=== PATIENT | female | born 1945 | race Hispanic/Latino ===

== ENCOUNTER 2017-03-23 08:58 | Day surgery (SDC) | payer MEDICARE, BC ==
[2017-03-18 10:21] VITALS: BMI 41.6
[2017-03-23] MEDS ORDERED: Iohexol 240 (50 ml) ONE (10:56)
[2017-03-23] MEDS ORDERED: Midazolam 2 MG/2 ML VIAL ONE (11:28)
[2017-03-23] MEDS ORDERED: Propofol 10 mg/ml Inj (20 ML) ONE (11:28)
[2017-03-23] MEDS ORDERED: cefTRIAXone (Rocephin) 1 gm Inj ONE (11:36)
[2017-03-23] MEDS ORDERED: ePHEDrine 50 mg/ml Inj ONE (11:47)
[2017-03-23] MEDS ORDERED: Lactated Ringer's 1,000 ML IV SCH (13:02)
[2017-03-23] MEDS ORDERED: HYDROmorphone 0.5 mg/0.5 ml ISec IVP PRN (13:02)
[2017-03-23 13:38] VITALS: RESP 18
[2017-03-23 14:01] VITALS: TEMP 97.7
[2017-03-23 14:05] VITALS: BP 123/61; PULSE 67; O2SAT 94
--- NOTE | 2017-03-23 14:10 | RAD ---
PROCEDURE: Fluoroscopy up to 1 hour HISTORY: BILATERAL RETROGRADES / STENT INSERTION (RIGHT) COMPARISON: TECHNIQUE: Fluoroscopy was provided in the operating room. 198 seconds of fluoro time were used. Sixteen images were submitted FINDINGS: The left ureter and renal collecting system are unremarkable. 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 On the right side there is hydronephrosis and hydroureter. There is placement of a right ureteral stent. Surgical hardware in the spine overlies the ureter and portions of the collecting system IMPRESSION: As above
--- NOTE | 2017-03-23 22:07 | OP ---
PROCEDURE DATE: 03/23/2017 PREOPERATIVE DIAGNOSIS: Hematuria. POSTOPERATIVE DIAGNOSIS: Right ureteral tumor. SURGEON: Dr. Watson. TYPE OF ANESTHESIA: LMA. DESCRIPTION OF PROCEDURE: After adequate LMA anesthesia was given, the patient was placed lithotomy, prepped and draped in the usual manner. A 22-Tajik cystourethroscope was introduced. 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 No other visible tumor on the bladder. No foreign bodies or stones. I attempted to do a retrograde with a cone-tipped catheter, but no dye would go up. Again, with an open-ended catheter and use of a Glidewire, was able to navigate a Glidewire up in to the kidney and then passed an open-ended catheter over the Glidewire, removing the Glidewire. Contrast was then injected. Prior to contrasting being injected, urine was obtained from the right side for cytology. After this was done, I did a contrast injection through the open-ended catheter, there was a hydronephrosis and there appeared to be filling defects in the lower third of the ureter. At this point, I placed the sensor wire through the open-ended catheter and removed the open-ended catheter. I then took a semi-rigid ureteroscope under direct vision, could advance approximately quarter the way up the right ureter and I could not see clearly due to the tumor. Tumor specimen was biopsied with forceps. The ureteroscope was then removed around the orifice of the right ureter, I fulgurated some oozing. Over the sensor wire, then placed a 24 cm 6-Tajik pigtail stent, which coiled nicely in the renal pelvis and the bladder when the wire was removed. 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 The bladder was drained. There was no evidence of any bleeding. The cystoscope was removed. The patient was awake and brought to the recovery room in good condition. Saturnino Watson MD
== END 2017-03-23 14:45 | disposition home or self-care (01) ==
LOC: SDS 08:58
PROVIDERS: ATTEND Urology
DX: C66.1 Malignant neoplasm of right ureter (principal); R31.9 Hematuria, unspecified; N13.30 Unspecified hydronephrosis; I10 Essential (primary) hypertension; E11.9 Type 2 diabetes mellitus without complications; Z79.84 Long term (current) use of oral hypoglycemic drugs
CPT/HCPCS: 52354; 88108; 88305; C1758; C2625; J0696; J1170; J2250; J2405; J2704; J3010; J7120 ×2; Q9966

== ENCOUNTER 2017-06-18 14:22 | Emergency (ER) | payer MEDICARE, BC ==
[2017-06-18 14:35] VITALS: BMI 39.8
[2017-06-18 14:39] VITALS: PULSE 92; RESP 18
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
[2017-06-18] MEDS ORDERED: Sodium Chloride 0.9% 1,000 ML IV STA (14:42)
[2017-06-18 15:11] LABS: BASO # 0.04 K/mm3 (0.0-2.0); BASO % 0.2 % (0.0-3.0); GRAN # 14.23 (1.4-6.5); GRAN % 84.7 % (50.0-68.0); HEMATOCRIT 33.7 % (36.0-48.0); LYMPH # 1.2 (1.2-3.4); LYMPH % 7.2 % (22.0-35.0); MEAN CELL VOLUME 88.9 fl (80.0-105.0); MEAN CORPUSCULAR HGB CONC 32.6 g/dl (31.0-37.0); MEAN PLATELET VOLUME 9.3 fl (7.0-11.0); MONO # 1.3 (0.1-0.6); MONO % 7.9 % (1.0-6.0); RED CELL DISTRIBUTION WIDTH 13.8 % (11.5-14.5); WHITE BLOOD COUNT 16.8 10^3/ul (4.5-11.0)
[2017-06-18 15:17] LABS: ALB/GLOB RATIO 1.2 (1.1-1.8); ALKALINE PHOSPHATASE 69 U/L (38-126); ALT/SGPT 29 U/L (7-56); AST/SGOT 26 U/L (14-36); BLOOD UREA NITROGEN 37 mg/dL (7-21); CALCIUM 9.6 mg/dL (8.4-10.5); CARBON DIOXIDE 24 mmol/L (21-33); CHLORIDE 96 mmol/L (98-107); GFR AFRICAN-AMERICAN 38; POTASSIUM 4.3 mmol/L (3.6-5.0); SODIUM 132 mmol/L (132-148); TOTAL PROTEIN 6.9 g/dL (5.8-8.3)
[2017-06-18 15:23] LABS: TROPONIN I < 0.01 ng/mL
[2017-06-18 15:26] LABS: VENOUS BLOOD PH 7.34 (7.32-7.43)
[2017-06-18 16:02] LABS: GLUCOSE,RANDOM 343 mg/dL (70-110)
--- NOTE | 2017-06-18 16:21 | RAD ---
HISTORY: cough COMPARISON: Chest x-ray performed 11/23/16 TECHNIQUE: Chest, one view. FINDINGS: Examination limited by habitus. LUNGS: No focal consolidation. Please note that chest x-ray has limited sensitivity for the detection of pulmonary masses. PLEURA: No significant pleural effusion identified. No definite pneumothorax . CARDIOVASCULAR: Heart size appears top normal. OSSEOUS STRUCTURES: Degenerative changes of the spine. VISUALIZED UPPER ABDOMEN: Unremarkable. OTHER FINDINGS: None. IMPRESSION: No focal consolidation, significant pleural effusion, or definite pneumothorax identified.
[2017-06-18 16:24] LABS: URINE BILIRUBIN NEGATIVE (NEGATIVE); URINE BLOOD LARGE (NEGATIVE); URINE GLUCOSE (UA) 100 mg/dL (NEGATIVE); URINE KETONE NEGATIVE (NEGATIVE); URINE LEUKOCYTE ESTERASE MODERATE Leu/uL (NEGATIVE); URINE PROTEIN 30 mg/dL (<30 mg/dL); URINE UROBILINOGEN 0.2 E.U./dL (<1 E.U./dL)
[2017-06-18 16:27] LABS: URINE APPEARANCE CLEAR (CLEAR); URINE COLOR YELLOW (YELLOW)
[2017-06-18 16:55] LABS: URINE AMORPHOUS SEDIMENT FEW; URINE BACTERIA MANY (NEG); URINE RBC TNTC /hpf (0-2); URINE WBC 25 - 30 /hpf (0-6)
[2017-06-18] MEDS ORDERED: levoFLOXacin 500 MG TAB PO STA (17:04)
[2017-06-18 17:22] VITALS: BP 124/62; TEMP 99; O2SAT 96
--- NOTE | 2017-06-20 10:57 | ED PDOC ---
ED Additional Note - Date & Time of Evaluation Date of Evaluation: 06/20/17 Time of Evaluation: 10:56 - Physician Additional Note Physician Additional Note: I received the urine culture result from RN Paula Frazier, show +Urine culture show klebsiella pneumoniae ssp, sensitive to fluoroquinlones which she discharge home with levaquin.
== END 2017-06-18 17:45 | disposition home or self-care (01) ==
LOC: ED 14:22
DX: N39.0 Urinary tract infection, site not specified (principal); E11.65 Type 2 diabetes mellitus with hyperglycemia; I10 Essential (primary) hypertension
CPT/HCPCS: 71010; 80053; 81001; 82803; 82948; 84484; 85025; 87086; 87181; 96360; 99284; J7040

== ENCOUNTER 2017-08-21 15:12 | Inpatient (IN) | payer MEDICARE, BC ==
[2017-08-21 15:13] VITALS: BMI 39.8
[2017-08-21] MEDS ORDERED: Cefepime IV 2 gm in NS 2 GM/100 ML BAG IVPB STA (15:51)
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
[2017-08-21 16:43] LABS: BASO # 0.05 K/mm3 (0.0-2.0); BASO % 0.7 % (0.0-3.0); EOS # 0.4 (0.0-0.7); EOS % 5.3 % (1.5-5.0); GRAN # 4.45 (1.4-6.5); GRAN % 59.2 % (50.0-68.0); HEMOGLOBIN 10.9 g/dL (12.0-16.0); LYMPH # 2.1 (1.2-3.4); LYMPH % 27.6 % (22.0-35.0); MEAN CELL VOLUME 86.9 fl (80.0-105.0); MEAN CORPUSCULAR HEMOGLOBIN 26.5 pg (25.0-35.0); MEAN CORPUSCULAR HGB CONC 30.5 g/dl (31.0-37.0); MEAN PLATELET VOLUME 9.4 fl (7.0-11.0); MONO # 0.5 (0.1-0.6); MONO % 7.2 % (1.0-6.0); RBC 4.11 10^6/uL (3.5-6.1); RED CELL DISTRIBUTION WIDTH 15.7 % (11.5-14.5); WHITE BLOOD COUNT 7.5 10^3/ul (4.5-11.0)
[2017-08-21 17:00] LABS: CALCIUM 10.2 mg/dL (8.4-10.5); URINE BILIRUBIN NEGATIVE (NEGATIVE); URINE BLOOD MODERATE (NEGATIVE); URINE GLUCOSE (UA) 500 mg/dL (NEGATIVE); URINE LEUKOCYTE ESTERASE LARGE Leu/uL (NEGATIVE); URINE NITRATE NEGATIVE (NEGATIVE); URINE PROTEIN 30 mg/dL (<30 mg/dL); URINE UROBILINOGEN 0.2 E.U./dL (<1 E.U./dL)
[2017-08-21] MEDS ORDERED: Sodium Chloride 0.9% 1,000 ML IV STA (17:01)
[2017-08-21] MEDS ORDERED: Sod Polystyrene Sulf 15 gm/60 ml Susp PO STA (17:01)
[2017-08-21 17:02] LABS: URINE APPEARANCE CLOUDY (CLEAR); URINE COLOR YELLOW (YELLOW)
[2017-08-21 17:54] LABS: URINE BACTERIA SMALL (NEG); URINE WBC TNTC /hpf (0-6)
[2017-08-21] MEDS: Insulin Reg-LOW-Coverage SC SCH (22:41)
--- NOTE | 2017-08-22 07:35 | HP ---
HISTORY OF PRESENT ILLNESS: Patient is a 72-year-old female patient of Dr. Bains, was referred to emergency room by urologist, Dr. Garcia, who did urine culture on 08/12/2017 and was found to have resistant Klebsiella UTI, only sensitive to IV antibiotics, so she was referred to emergency room for IV antibiotics. Patient does complain of increased frequency of urination and discomfort. Denies any fever or chills. No history of nausea or vomiting. No abdominal pain. No diarrhea. Patient does have a history of recurrent UTI. PAST MEDICAL HISTORY: Her significant past medical history is: 1. Hypertension. 2. Arq-qdwikon-joiodoplf diabetes. 3. Ureteral cancer. PAST SURGICAL HISTORY: She had a surgical excision on 06/07/2017, when she recently had a stent removed. ALLERGIES: SHE IS NOT ALLERGIC TO ANY MEDICATION. MEDICATIONS AT HOME: Patient is on metformin 1000 twice a day, glipizide mg before breakfast and 5 mg at bedtime. She is on Cymbalta 30 mg daily, aspirin 81 mg daily, multivitamin, Januvia 100 mg daily, Crestor 5 mg daily, losartan 100 mg daily, gabapentin 300 three times a day. SOCIAL HISTORY: Denies smoking, drinking, alcohol use. REVIEW OF SYSTEMS: Significant for urinary discomfort. PHYSICAL EXAMINATION: GENERAL: She is awake, alert, oriented, communicative. VITAL SIGNS: She is afebrile, pulse 82, respirations 20, blood pressure 138/69. LUNGS: Bilateral good airflow. No rhonchi or crackle. HEART: S1 and S2 audible. ABDOMEN: Soft, obese, nontender. No rebound. No guarding. NEUROLOGIC: She is awake, alert, oriented, able to communicate. LABORATORY DATA: WBC 7.5, hemoglobin 10.9, hematocrit 35.7, platelet 376. Chemistry: Sodium 145, potassium 5.3, chloride 106, CO2 26, BUN 28, creatinine 1.2, blood sugar of 204. Urinalysis shows moderately large leukocytes, WBCs too numerous to count. ASSESSMENT AND PLAN: 1. Recurrent urinary tract infection. Sensitivity done in urologist office shows Klebsiella. 2. Tlg-hctyzgz-uptajtayh diabetes. 3. Hypertension. 4. Hyperlipidemia. PLAN: Patient is sensitive to cefepime, we will continue that. She already has received one dose of cefepime in the ER. We will monitor her blood sugar. Blood cultures and urine culture have been sent, and we will follow up her electrolytes in the a.m. and ID consult with Dr. Hoffman has been requested. Khang Stewart MD
[2017-08-22] MEDS: Insulin Reg-LOW-Coverage SC SCH ×4 (07:48→22:11)
[2017-08-22 08:08] LABS: BASO # 0.05 K/mm3 (0.0-2.0); BASO % 0.6 % (0.0-3.0); EOS # 0.5 (0.0-0.7); EOS % 5.8 % (1.5-5.0); GRAN # 5.82 (1.4-6.5); GRAN % 65.1 % (50.0-68.0); LYMPH # 1.8 (1.2-3.4); LYMPH % 20.3 % (22.0-35.0); MEAN CELL VOLUME 85.9 fl (80.0-105.0); MEAN CORPUSCULAR HEMOGLOBIN 26.6 pg (25.0-35.0); MEAN PLATELET VOLUME 9.2 fl (7.0-11.0); MONO # 0.7 (0.1-0.6); MONO % 8.2 % (1.0-6.0); RBC 3.76 10^6/uL (3.5-6.1); RED CELL DISTRIBUTION WIDTH 15.5 % (11.5-14.5); WHITE BLOOD COUNT 8.9 10^3/ul (4.5-11.0)
[2017-08-22 08:37] LABS: ALB/GLOB RATIO 1.1 (1.1-1.8); ALBUMIN 3.4 g/dL (3.0-4.8); CALCIUM 9.7 mg/dL (8.4-10.5); MAGNESIUM 1.4 mg/dL (1.7-2.2)
[2017-08-22 08:41] LABS: FREE T4 0.74 ng/dL (0.78-2.19)
[2017-08-22] MEDS ORDERED: Cefepime 1gm in NS 100ml 1 GM/100 ML BAG IVPB SCH (10:00)
[2017-08-22] MEDS: Meropenem 1g/NS 100mL IVPB 1 GM/100 ML PIGGYBACK IVPB SCH ×3 (12:10→22:12)
--- NOTE | 2017-08-22 23:01 | CON ---
DATE: 08/22/2017 LOCATION: The patient is seen earlier today in 570, bed 1. CHIEF COMPLAINT: The patient's possible urinary tract infection times a few days. HISTORY OF PRESENT ILLNESS: This is a 72-year-old female with history of diabetes mellitus, hypertension, urethral cancer and renal stents removed 2-3 weeks ago. Presents to the emergency room with urinary symptoms of frequency and was seen by Dr. Garcia, urologist on 08/12/2017 and reported having resistant urinary tract infections, so he transferred the patient for resistant Klebsiella and IV antibiotic treatment. The patient states she does not have dysuria, but she did have frequency. She did have low-grade fevers. No chills. No abdominal pain. No flank pain. No back pain. No chest pain, shortness of breath or cough. PAST MEDICAL HISTORY: Significant for hypertension, diabetes and hyperlipidemia and ureteral cancer. PAST SURGICAL HISTORY: Significant for tubal ligation, right knee surgery, right foot surgery and a urology surgery including the removal of the renal stent 2-3 weeks ago. ALLERGIES: THE PATIENT HAS NO KNOWN ALLERGIES. MEDICATIONS AT HOME: Include metformin, glipizide, duloxetine, aspirin, rosuvastatin, multivitamins. PHYSICAL EXAMINATION: GENERAL: The patient is in bed, in no acute distress, answering questions appropriately with temperature of 99, heart rate of 82, respiratory rate of 20, blood pressure is 120/40. HEENT: Examination of HEENT is unremarkable. NECK: Supple. LUNGS: Have decreased breath sounds. HEART: Normal S1, S2. ABDOMEN: Soft, nontender. LABORATORY DATA: Laboratory examination reveals a white count of 8.9, hemoglobin of 10, platelets of 347, BUN of 28, creatinine is 1.2. Random glucose is elevated. Urinalysis is noted to have too numerous wbc's. Urine culture has gram-negative leyla. Urine culture from 06/2017 had ESBL Klebsiella. ASSESSMENT AND PLAN: A 72-year-old female with a history of ureteral cancer with surgery and stent placement, stent removed 2-3 weeks ago with history of hypertension, diabetes, hyperlipidemia. Had frequency, but no dysuria as outpatient and seen doctors as outpatient and was given antibiotics as outpatient and found to have resistant extended-spectrum beta-lactamase Klebsiella on last admission and resistant organism on this admission as outpatient. Now #1 is a gram-negative leyla urinary tract infection, found to be resistant as outpatient, most likely recurrence of extended-spectrum beta-lactamase Klebsiella. We will discontinue the cefepime and start meropenem. Pending the identification sensitivity of the gram-negative leyla in the urine and we will check on the blood cultures and we will make further recommendations upon availability of urine cultures. We will place the patient on extended-spectrum beta-lactamase precautions since the patient had a positive extended-spectrum beta-lactamase Klebsiella in June. Darci Hoffman MD
--- NOTE | 2017-08-23 00:27 | PN ---
DATE: SUBJECTIVE: Patient has no complaints of any chest pain, shortness of breath, headaches, or dizziness. PHYSICAL EXAMINATION: VITAL SIGNS: Temperature is 99.1, pulse is 71, blood pressure is 120/48, and respirations 18. GENERAL: The patient is lying in bed, flat, comfortable. HEENT: No oral lesion. Anicteric sclerae. Moist mucosa. NECK: No JVD, adenopathy, or thyromegaly. CARDIOVASCULAR: S1 and S2, regular. No murmurs, rubs, or gallops. LUNGS: Clear to auscultation bilaterally. No wheeze, rales, or rhonchi. ABDOMEN: Bowel sounds are positive, soft, nontender, and nondistended. EXTREMITIES: No cyanosis, clubbing, or edema. LABORATORY DATA: White count is 8.9 and hemoglobin is 10. Chemistry shows sodium 142, potassium 4.2, magnesium is 1.4, and creatinine is 1.3. ASSESSMENT: 1. Urinary tract infection. 2. Diabetes type 2. 3. Hypertension. 4. Dyslipidemia. 5. Hypomagnesemia. PLAN: The patient had urinary tract infection. She has gram-negative rods that are present in her urine. She is being followed by Dr. Hoffman. The patient is on Cymbalta. She is going to continue on aspirin daily. She is on Januvia for diabetes. She is on meropenem for antibiotics. We will await culture results and further input from Dr. Hoffman from Infectious Disease. Jacobo Ramirez MD
[2017-08-23] MEDS: Meropenem 1g/NS 100mL IVPB 1 GM/100 ML PIGGYBACK IVPB SCH ×2 (05:25→22:05)
[2017-08-23] MEDS: Insulin Reg-LOW-Coverage SC SCH ×4 (08:10→22:03)
--- NOTE | 2017-08-23 19:51 | CP.PCM.PN ---
Subjective - Date & Time of Evaluation Date of Evaluation: 08/23/17 Time of Evaluation: 10:50 - Subjective Subjective: Comfortable, no urinary symptoms currently, no fevers. Objective - Vital Signs/Intake and Output Vital Signs (last 24 hours): Temp Pulse Resp BP Pulse Ox 97.7 F 78 18 132/56 L 95 08/23/17 07:36 08/23/17 07:36 08/23/17 07:36 08/23/17 07:36 08/23/17 07:36 Intake and Output: 08/23/17 08/24/17 18:59 06:59 Intake Total 480 Balance 480 - Medications Medications: Current Medications Aspirin (Aspirin Chewable) 81 mg PO DAILY [facility] Last Admin: 08/23/17 10:04 Dose: 81 mg Duloxetine HCl (Cymbalta) 20 mg PO DAILY [facility] Last Admin: 08/23/17 10:05 Dose: 20 mg Folic Acid (Folic Acid) 1 mg PO DAILY [facility] Last Admin: 08/23/17 10:04 Dose: 1 mg Meropenem/Sodium Chloride (Meropenem 1g/Ns 100ml Ivpb) 1 gm in 100 mls @ 100 mls/hr IVPB Q12 JOCELYN PRN Reason: Protocol Stop: 09/01/17 11:16 Insulin Human Regular (Humulin R Low) 0 units SC ACHS [facility] PRN Reason: Protocol Last Admin: 08/23/17 16:20 Dose: 3 units Losartan Potassium (Cozaar) 100 mg PO DAILY [facility] Last Admin: 08/23/17 10:04 Dose: 100 mg Metformin HCl (Glucophage) 500 mg PO BID [facility] Sitagliptin Phosphate (Januvia) 100 mg PO DAILY [facility] - Labs Labs: 08/22/17 07:30 08/22/17 07:30 - Constitutional Appears: Non-toxic - Head Exam Head Exam: NORMAL INSPECTION - ENT Exam ENT Exam: Mucous Membranes Moist - Neck Exam Neck Exam: absent: Meningismus - Respiratory Exam Respiratory Exam: Decreased Breath Sounds - Cardiovascular Exam Cardiovascular Exam: +S1, +S2 - GI/Abdominal Exam GI & Abdominal Exam: Soft. absent: Tenderness Assessment and Plan - Assessment and Plan (Free Text) Plan: Assessment UTI due to ESBL Klebsiella HTN DM dyslpidemia uterine CA S/P right knee surgery S/P right foot surgery S/P renal stent placement Plan Continue Merrem day 2, should complete up to 10 days of antibiotics
[2017-08-23 20:00] VITALS: RESP 20
--- NOTE | 2017-08-24 00:58 | PN ---
DATE: SUBJECTIVE: Patient is 72 years old, who was admitted because of multidrug-resistant UTI, only sensitive to IV antibiotics. Patient had a surgery done recently. Had stent placed that was also removed a few weeks ago. Patient went for routine checkup by her urologist who did culture and was found to have Klebsiella UTI and referred to ER for IV antibiotics. PHYSICAL EXAMINATION: GENERAL: Today, she is awake, alert, oriented, communicative. VITAL SIGNS: She is afebrile, pulse 70, respirations 18, blood pressure 132/56. LUNGS: Bilateral good airflow. No rhonchi or crackle. HEART: S1 and S2 audible. ABDOMEN: Soft, nontender. No rebound. No guarding. NEUROLOGIC: She is awake, alert, oriented, communicative, ambulatory. LABORATORY DATA: Blood sugar is 263. Urine cultures are positive for Klebsiella pneumonia. Blood cultures are negative. ASSESSMENT: 1. Status post urethral mass resection. 2. Recurrent urinary tract infection. 3. Klebsiella urinary tract infection. 4. Non-insulin dependant diabetes. 5. Hypertension. 6. Hyperlipidemia. PLAN: I will increase her Januvia to 100. Also start her on metformin and monitor her blood sugar. TCU evaluation will be requested. If the patient is accepted in TCU, she will be transferred there to complete her course of antibiotics. Khang Stewart MD
[2017-08-24 08:13] VITALS: BP 118/49; PULSE 61; TEMP 98.6; O2SAT 98
[2017-08-24] MEDS: Insulin Reg-LOW-Coverage SC SCH ×2 (08:38→11:58)
[2017-08-24] MEDS: Meropenem 1g/NS 100mL IVPB 1 GM/100 ML PIGGYBACK IVPB SCH (09:59)
--- NOTE | 2017-08-25 00:20 | PN ---
DATE: 08/24/2017 SUBJECTIVE: The patient was seen earlier this morning in room 570, bed 1. She is doing well. No fevers and chills. No nausea and vomiting. Tolerating the antibiotics. PHYSICAL EXAMINATION: VITAL SIGNS: Temperature is 98, blood pressure is 118/40, respiratory rate of 20. HEENT: Examination of HEENT is unremarkable. NECK: Supple. LUNGS: Decreased breath sounds. HEART: Normal S1 and S2. ABDOMEN: Soft, nontender. LABORATORY DATA: Laboratory examination reveals a white count of 8.9, hemoglobin of 10, platelets of 347. Chemistries reveals BUN of 25, creatinine of 1.3. Urinalysis is noted. Microbiology reveals that Klebsiella which is ESBL in the urine. The blood cultures have no growth. ASSESSMENT AND PLAN: This is a 72-year-old female who was seen earlier this morning in room 570, bed 1 with Extended spectrum beta-lactamase Klebsiella urinary tract infection in a patient who has had renal stent placement and hypertensive diabetic, had cloudy urine and urinary symptoms. Today is day #3 of meropenem, would complete 7 to 10 days of meropenem. Case discussed with Dr. Stewart. We will follow with you. The patient for possible transfer to transitional care. Darci Hoffman MD
--- NOTE | 2017-08-25 07:00 | DS ---
HISTORY OF PRESENT ILLNESS: Patient is 72 years old, seen and examined, lying in bed. Seem to be comfortable. No nausea, no vomiting, no diarrhea. No fever, no chills. Patient was admitted because of positive urine culture. Patient recently had stent removed 3 to 4 weeks ago after she had urethral mass resection done. She is currently asymptomatic. PHYSICAL EXAMINATION: VITAL SIGNS: She is afebrile, pulse 61, respirations 20, blood pressure 118/49 LUNGS: Bilateral good airflow. No rhonchi or crackles. HEART: S1 and S2 audible. ABDOMEN: Soft, nontender. No rebound. No guarding. NEUROLOGICAL: Patient is awake, alert, oriented and communicative. LABORATORY DATA: Her urine culture was positive for Klebsiella pneumoniae. ASSESSMENT: 1. Multi-drug resistant urinary tract infection, only sensitive to intravenous antibiotics. 2. Non-insulin dependent diabetes. 3. Hypertension. 4. Hyperlipidemia. 5. History of bilateral cataract extraction. 6. Status post left thumb amputation. PLAN: Currently patient is on aspirin 81 daily, losartan. We will increase her metformin to 1000 q.12 that she takes at home. Patient need to complete her course of antibiotic for total of 7 days. She need 4 or 5 more days. She is being transferred to TCU, where she will complete her course of antibiotic. Khang Stewart MD
--- NOTE | 2017-08-25 08:12 | CON ---
DATE: 08/23/2017 UROLOGY CONSULTATION CHIEF COMPLAINT: Urinary tract infection. HISTORY OF PRESENT ILLNESS: This is a 72-year-old female who is known to my practice. Patient had a resection of a ureteral tumor with a reimplantation done by . During her followup exam, patient was found to have a Klebsiella urinary tract infection which was resistant to oral antibiotics. Patient reports she was having some urinary frequency, but no acute dysuria. She denied any fever or chills. Denies any nausea or vomiting. She does not report a history of recurrent urinary tract infections until after having the surgery done. A consultation was then requested. PAST MEDICAL HISTORY: Significant for hypertension, diabetes, ureteral carcinoma. MEDICATIONS: At home include metformin, glipizide, Cymbalta, aspirin, Januvia, Crestor, losartan, and Neurontin. Currently on meropenem. ALLERGIES: NO KNOWN DRUG ALLERGIES. FAMILY HISTORY: Noncontributory. SOCIAL HISTORY: No smoking or EtOH use. REVIEW OF SYSTEMS: Twelve-point review of systems was obtained. Positives as per the history of present illness. Otherwise, denies any other acute issues. PHYSICAL EXAMINATION: GENERAL: Patient is awake and alert. She is in no acute distress. VITAL SIGNS: She has been afebrile, BP 140/60, respirations 20, pulse of 86. NECK: Supple. There is no adenopathy. CHEST: Exam of the chest reveals a normal inspiratory effort. CARDIAC: Shows positive S1, S2. There is no peripheral edema noted. ABDOMEN: Her abdomen is soft, nontender, nondistended. There is no hepatosplenomegaly. There is no costovertebral angle tenderness. EXTREMITIES: There is no cyanosis or edema. LABORATORY EXAMINATION: WBC count was 8.9. Urine culture showed Klebsiella pneumonia. Blood cultures showed no growth. RADIOLOGIC EXAMINATION: No recent pertinent imaging has been done. IMPRESSION: This is a 72-year-old female with history of a ureteral tumor, who developed a urinary infection with her stent in place. The stent was recently removed and the patient has now had a resistant urinary infection. She was admitted for intravenous antibiotics. Her voiding symptoms have improved with appropriate antibiotics. Blood cultures were negative. She has no evidence of sepsis. PLAN: Will be to continue IV antibiotics as per ID consultation. I would plan on a renal ultrasound to assess as her stent was recently removed. If possible, the patient can be treated with outpatient IV antibiotics or if possible, per ID recommendation possibly the patient could be switched to an oral antibiotic after a few days of IV antibiotics, but I will leave that recommendation to the ID financial sales consultant once the further spectrum of sensitivities are known regarding the Klebsiella urinary infection. Patient will need to follow with me in the office regarding her ureteral tumor. She needs to be scheduled for a followup ureteroscopy and cystoscopy to assess. Thank you for allowing me to participate the care of this patient. We will follow her with you. Riki Quigley MD
== END 2017-08-24 13:47 | DRG 690 ==
LOC: ED 15:12 → ERH 17:33 → 5RSO 22:13
PROVIDERS: ADMIT Internal Medicine; ATTEND Internal Medicine
DX: N39.0 Urinary tract infection, site not specified (principal); B96.1 Klebsiella pneumoniae [K. pneumoniae] as the cause of diseases classified elsewhere; Z16.12 Extended spectrum beta lactamase (ESBL) resistance; Z16.24 Resistance to multiple antibiotics; E11.9 Type 2 diabetes mellitus without complications; E83.42 Hypomagnesemia; I10 Essential (primary) hypertension; E78.5 Hyperlipidemia, unspecified; Z85.54 Personal history of malignant neoplasm of ureter; Z79.84 Long term (current) use of oral hypoglycemic drugs; Z79.82 Long term (current) use of aspirin; Z98.42 Cataract extraction status, left eye; Z98.41 Cataract extraction status, right eye

== ENCOUNTER 2017-08-24 14:00 | Inpatient (IN) | payer OTHER, BC ==
[2017-08-24 14:08] VITALS: BMI 37.0
[2017-08-24] MEDS: Insulin Reg-LOW-Coverage SC SCH ×2 (17:30→22:07)
[2017-08-24] MEDS: Meropenem 1g/NS 100mL IVPB 1 GM/100 ML PIGGYBACK IVPB SCH (17:54)
[2017-08-24] MEDS ORDERED: Pneumococcal 23-Valent Vaccine IM ONE (18:25)
[2017-08-24] MEDS ORDERED: Influenza Vaccine 60 mcg/0.5 mL SYR (4YR UP) IM ONE (18:25)
[2017-08-25] MEDS: Meropenem 1g/NS 100mL IVPB 1 GM/100 ML PIGGYBACK IVPB SCH ×2 (05:12→17:47)
[2017-08-25] MEDS: Insulin Reg-LOW-Coverage SC SCH ×4 (06:37→21:56)
--- NOTE | 2017-08-26 01:13 | CON ---
DATE: 08/25/2017 LOCATION: Patient is seen earlier today in room 320. CHIEF COMPLAINT: Weakness times several days. HISTORY OF PRESENT ILLNESS: This is a 72-year-old female with past medical history significant for diabetes mellitus, hypertension, ureteral cancer, renal stents, which was removed 2 to 3 weeks prior to admission. Patient was admitted with having urinary symptoms, was seen by a urologist who sent for cultures, had resistant Klebsiella, and patient she did have some frequency and dysuria and has cloudy-looking urine. REVIEW OF SYSTEMS: Reveals no flank pain; no chest pain; no abdominal pain, diarrhea, or constipation. PAST MEDICAL HISTORY: Significant for hypertension, diabetes, ureteral cancer, hyperlipidemia, and a recent renal stent removal. PAST SURGICAL HISTORY: Significant for right knee surgery, tubal ligation, and right foot surgery. ALLERGIES: PATIENT HAS NO KNOWN ALLERGIES. MEDICATIONS: Reviewed. PHYSICAL EXAMINATION: VITAL SIGNS: Temperature is 98, blood pressure is 120/70, respiratory rate of 16. HEENT: Unremarkable. NECK: Supple. LUNGS: Have decreased breath sounds. HEART: Normal S1 and S2. ABDOMEN: Soft, nontender. LABORATORY DATA: Laboratory examinations are reviewed and include a white count of 8, hemoglobin of 10. A creatinine of 1.3. Urinalysis is reviewed. Microbiology, as noted, ESBL Klebsiella. ASSESSMENT: This is a 72-year-old female with extended-spectrum beta-lactamases Klebsiella urinary tract infection after removal of a renal stent and today is day number 4 of 7 to 10 days of meropenem and we will follow closely with you. Review of the orders revealed the patient to be on meropenem ; today is day number 4 of 7 to 10 days. Case discussed with Dr. Stewart. Darci Hoffman MD
[2017-08-26] MEDS: Meropenem 1g/NS 100mL IVPB 1 GM/100 ML PIGGYBACK IVPB SCH ×2 (05:15→17:35)
--- NOTE | 2017-08-26 06:29 | HP ---
HISTORY OF PRESENT ILLNESS: The patient is a 72-year-old who was seen by her urologist who did urine culture and was found to have multidrug-resistant UTI. She was tried on p.o. antibiotic with no relief. The patient states prior to coming to the hospital, she was having very frothy cloudy urine. So, she was referred to ER for IV antibiotic. The patient grew Klebsiella infection, was started on IV meropenem and is being transferred to TCU to complete her course of antibiotic. Denies any fever or chills. No nausea or vomiting. No burning. No abdominal pain. PAST MEDICAL HISTORY: Significant for: 1. Hypertension. 2. Jce-jaobzzo-digniizvm diabetes. 3. History of ureteral cancer, had resection done last month, followed by stent placement, but that was also removed. ALLERGIES: SHE IS NOT ALLERGIC TO ANY MEDICATION. MEDICATIONS AT HOME: She is on metformin 1000 twice a day, Januvia 100 mg daily, Crestor 5 mg daily, multivitamin, Cozaar, glipizide 15 mg before breakfast and 25 at bedtime, gabapentin 300 three times a day, and aspirin 81 daily. SOCIAL HISTORY: She lives with her son. Denies smoking, drinking or alcohol use. REVIEW OF SYSTEMS: Has no significant complaint. PHYSICAL EXAMINATION: GENERAL: She is awake, alert, oriented, communicative. VITAL SIGNS: She is afebrile, pulse 82, respirations 18, blood pressure 136/63. LUNGS: Bilateral good airflow. No rhonchi or crackle. HEART: S1 and S2 audible. ABDOMEN: Soft, nontender. No rebound. No guarding. NEUROLOGIC: She is awake and alert, able to communicate. LABORATORY DATA: Blood sugar is 225. ASSESSMENT: 1. Nqm-mhuoksq-xfdzziwzl diabetes. 2. Status post urethral tumor resection. 3. Multidrug-resistant urinary tract infection. 4. Klebsiella urinary tract infection. 5. Uncontrolled diabetes. PLAN: I will increase metformin to 1000 twice a day. I will start her on Januvia and she will be started on glipizide and monitor her blood sugar closely. The patient to finish her course of antibiotic, that is meropenem, on Wednesday. Then, we will make discharge plan. Khang Stewart MD
[2017-08-26] MEDS: Insulin Reg-LOW-Coverage SC SCH ×4 (06:46→21:42)
[2017-08-26 13:32] LABS: URINE BILIRUBIN NEGATIVE (NEGATIVE); URINE BLOOD TRACE-INTACT (NEGATIVE); URINE GLUCOSE (UA) NEGATIVE (NEGATIVE); URINE LEUKOCYTE ESTERASE SMALL Leu/uL (NEGATIVE); URINE NITRATE NEGATIVE (NEGATIVE); URINE PROTEIN TRACE mg/dL (<30 mg/dL); URINE UROBILINOGEN 0.2 E.U./dL (<1 E.U./dL)
[2017-08-26 13:35] LABS: URINE APPEARANCE SLIGHT-CLOUDY (CLEAR); URINE COLOR LIGHT YELLOW (YELLOW)
[2017-08-26 13:39] LABS: URINE BACTERIA SMALL (NEG)
--- NOTE | 2017-08-26 23:01 | PN ---
DATE: SUBJECTIVE: Patient is 72 years old. Seen and examined. No nausea, vomiting or diarrhea. No frothy urine. No cloudy urine. No hematuria. Eating and tolerating. PHYSICAL EXAMINATION: VITAL SIGNS: She is afebrile, pulse is 84, respirations 20, blood pressure 114/57. LUNGS: Bilateral good airflow. No rhonchi or crackle. HEART: S1 and S2 audible. ABDOMEN: Soft, nontender. No rebound. No guarding. NEUROLOGIC: Patient is awake, alert, oriented, communicative, ambulatory. LABORATORY DATA: Blood sugar is 104. ASSESSMENT: 1. Recurrent urinary tract infection. 2. Status post urethral mass resection. 3. Qdi-jjvrwvs-emfrbrsti diabetes. 4. Hyperlipidemia. 5. Morbid obesity. PLAN: We will continue patient on current medication and order for urinalysis and monitor her blood sugar. Discharge plan discussed. Khang Stewart MD
--- NOTE | 2017-08-27 01:08 | PN ---
DATE: 08/26/2017 SUBJECTIVE: Patient was seen earlier today in room 320. No fevers, no chills. PHYSICAL EXAMINATION: VITAL SIGNS: Temperature is 98, blood pressure 120/70, respiratory rate 16. HEENT: Unremarkable. NECK: Supple. LUNGS: Have decreased breath sounds. HEART: Normal S1, S2. ABDOMEN: Soft. LABORATORY DATA: Reviewed. ASSESSMENT AND PLAN: This is a 72-year-old female with extended-spectrum beta-lactamases Klebsiella urinary tract infection and possible cystitis, had a renal stent, which was removed. Today is day #5 of 7-10 days. We will continue with the meropenem. Patient is inquiring about going home. We will follow closely with you. Darci Hoffman MD
[2017-08-27] MEDS: Meropenem 1g/NS 100mL IVPB 1 GM/100 ML PIGGYBACK IVPB SCH ×2 (05:31→17:10)
[2017-08-27] MEDS: Insulin Reg-LOW-Coverage SC SCH ×4 (06:40→22:00)
--- NOTE | 2017-08-27 23:10 | PN ---
DATE: SUBJECTIVE: Patient is 72 years old. Seen and examined. Sitting in chair, seems to be comfortable, anxious to go home. PHYSICAL EXAMINATION: VITAL SIGNS: Patient is afebrile. Pulse is 98, respirations 18, blood pressure 135/89. LUNGS: Bilateral good airflow. No rhonchi or crackle. HEART: S1 and S2 audible. ABDOMEN: Soft, nontender. No rebound. No guarding. NEUROLOGIC: She is awake, alert, oriented, communicative. LABORATORY DATA: Urine culture done yesterday has no growth. ASSESSMENT: 1. Multidrug resistant urinary tract infection. 2. Klebsiella pneumonia urinary tract infection. 3. History of urethral growth, status post resection and stent placement. 4. Non-insulin dependent diabetes. 5. Morbid obesity. 6. Hypertension. PLAN: Currently patient is on metformin, losartan, Cymbalta, glipizide and Januvia. We will continue that. Continue meropenem. Discharge plan for Wednesday morning. Khang Stewart MD
--- NOTE | 2017-08-28 00:12 | PN ---
DATE: 08/27/2017 SUBJECTIVE: The patient is seen early this morning in room 320. Doing well. No fevers or chills. PHYSICAL EXAMINATION: VITAL SIGNS: Temperature is 97, blood pressure is 130/80, and respiratory rate of 16. HEENT: Unremarkable. NECK: Supple. LUNGS: Have decreased breath sounds. HEART: Normal S1 and S2. ABDOMEN: Soft and nontender. LABORATORY DATA: Laboratory examination is noted. Repeat urine culture has no growth. Review of the orders reveals the patient to be on meropenem. ASSESSMENT AND PLAN: This is a 72-year-old female with extended-spectrum beta-lactamase Klebsiella urinary tract infection, possible cystitis, and the patient had a renal stent, which was removed, today is day #6 of 7 to 10 days of meropenem. We will discuss with you. The patient is doing much better. Darci Hoffman MD
[2017-08-28] MEDS: Meropenem 1g/NS 100mL IVPB 1 GM/100 ML PIGGYBACK IVPB SCH ×2 (06:14→17:23)
[2017-08-28] MEDS: Insulin Reg-LOW-Coverage SC SCH ×4 (06:34→22:09)
[2017-08-28 17:11] VITALS: BP 129/67; PULSE 75; RESP 18; TEMP 99; O2SAT 98
--- NOTE | 2017-08-28 20:43 | PN ---
DATE: 08/28/2017 SUBJECTIVE: Patient is in bed, in no acute distress, nontoxic. PHYSICAL EXAMINATION: VITAL SIGNS: Temperature is 97, blood pressure is 129/70, respiratory rate of 20, heart rate of 61. HEENT: Unremarkable. NECK: Supple. LUNGS: Have decreased breath sounds. HEART: Normal S1, S2. ABDOMEN: Soft, nontender. LABORATORY DATA: Has been reviewed. ASSESSMENT AND PLAN: A 72-year-old female, who was admitted with extended-spectrum beta lactamase Klebsiella urinary tract infection and cystitis with a renal stent, which was removed today, day number 7 of meropenem. We will complete 7 to 10 days of meropenem. Patient wants to be discharged and is feeling much better. Darci Hoffman MD
--- NOTE | 2017-08-29 00:40 | PN ---
DATE: SUBJECTIVE: The patient is 72 years old, seen and examined, sitting in chair, anxiously waiting to be discharged. Denies any fever, chills, nausea or vomiting. Eating and tolerating. No burning upon urination. No hematuria. PHYSICAL EXAMINATION: VITAL SIGNS: She is afebrile, pulse 75, respirations 18, blood pressure 129/67. LUNGS: Bilateral fair airflow. No rhonchi or crackles. HEART: S1 and S2 audible. ABDOMEN: Soft, obese, nontender, no rebound, no guarding. NEUROLOGIC: She is awake, alert, oriented, communicative, ambulatory. LABORATORY DATA: Repeat urinalysis is unremarkable. Blood sugar is 287. ASSESSMENT: 1. Multidrug resistant urinary tract infection. 2. Status post urethral growth that was excised a couple of months ago. 3. Status post urethral stent insertion, that was removed later on. 4. Morbid obesity. 5. Non-insulin dependent diabetes. PLAN: The patient is currently on meropenem. She will finish her last dose by tomorrow morning, after that she will be discharged. She will follow with her PMD. Khang Stewart MD
[2017-08-29] MEDS: Meropenem 1g/NS 100mL IVPB 1 GM/100 ML PIGGYBACK IVPB SCH (05:30)
[2017-08-29] MEDS: Insulin Reg-LOW-Coverage SC SCH ×2 (06:37→11:56)
--- NOTE | 2017-08-29 15:29 | PN ---
DATE: 08/29/2017 SUBJECTIVE: The patient is in bed, in no acute distress, nontoxic. PHYSICAL EXAMINATION: VITAL SIGNS: Temperature is 99, blood pressure is 129/60, respiratory rate of 20, heart rate of 75. HEENT: Examination of HEENT is unremarkable. NECK: Supple. LUNGS: Have decreased breath sounds. HEART: Normal S1 and S2. ABDOMEN: Soft, nontender. LABORATORY DATA: Laboratory examination reveals the urinalysis from 08/26/2017 shows 5 to 10 wbc's. Microbiology reveals the urine culture has no growth. ASSESSMENT AND PLAN: A 72-year-old female who was seen early this morning. She states she wants to go home. Admitted with extended-spectrum beta-lactamase Klebsiella urinary tract infection and cystitis with a renal stent which was removed. Today is day #8 of antibiotics. Complete 7 to 10 days of antibiotics. Case discussed with Dr. Stewart for the patient's possible discharge today. Darci Hoffman MD
--- NOTE | 2017-08-30 05:26 | DS ---
HISTORY OF PRESENT ILLNESS: The patient is a 72-year-old, seen and examined, lying in bed, seems to be feel comfortable. No nausea. No vomiting. No diarrhea. Eating and tolerating. No fever or chills. No urinary symptom. Patient was admitted because of multidrug-resistant urinary tract infection. PHYSICAL EXAMINATION: VITAL SIGNS: She is afebrile, pulse 75, respirations 18, blood pressure 129/67. LUNGS: Bilateral free air flow. No rhonchi or crackle. HEART: S1, S2, audible. ABDOMEN: Soft, obese, nontender. No rebound. No guarding. NEUROLOGIC: She is awake, alert, oriented, communicative. ASSESSMENT AND PLAN: 1. Multidrug-resistant urinary tract infection, only sensitive to intravenous antibiotics. 2. History of urethral growth, status post resection. 3. Morbid obesity. 4. Non-insulin dependent diabetes. 5. Hypertension. 6. Hyperlipidemia. PLAN: The patient will finish her course of meropenem, seems to be asymptomatic. She will resume her medication including metformin 1000 twice a day, Januvia 100 daily, Crestor 5 mg daily, multivitamin, losartan 100 daily, glipizide 15 mg twice a day, aspirin 81 mg daily. She will follow with her PMD and her urologist as outpatient. Khang Stewart MD
== END 2017-08-29 12:08 | disposition home or self-care (01) | DRG 690 ==
LOC: TRCU 14:00
PROVIDERS: ADMIT Internal Medicine; ATTEND Internal Medicine
PROC: F07Z9ZZ Gait Training/Functional Ambulation Treatment (ICD-10-PCS; principal; 2017-08-24)
PROC: F07M6ZZ Therapeutic Exercise Treatment of Musculoskeletal System - Whole Body (ICD-10-PCS; 2017-08-24)
PROC: F08Z4ZZ Home Management Treatment (ICD-10-PCS; 2017-08-26)
DX: N30.90 Cystitis, unspecified without hematuria (principal); E11.65 Type 2 diabetes mellitus with hyperglycemia; B96.1 Klebsiella pneumoniae [K. pneumoniae] as the cause of diseases classified elsewhere; E66.01 Morbid (severe) obesity due to excess calories; E78.5 Hyperlipidemia, unspecified; I10 Essential (primary) hypertension; Z16.24 Resistance to multiple antibiotics; Z79.82 Long term (current) use of aspirin; Z79.84 Long term (current) use of oral hypoglycemic drugs; Z79.899 Other long term (current) drug therapy; Z87.440 Personal history of urinary (tract) infections

== ENCOUNTER 2017-12-20 07:36 | Day surgery (SDC) | payer MEDICARE, BC ==
[2017-12-08 09:44] VITALS: BMI 41.6
[2017-12-20] MEDS ORDERED: Lidocaine 2% Jelly (Uro-Jet) ONE (10:46)
[2017-12-20] MEDS ORDERED: Iohexol 240 (50 ml) ONE (10:46)
[2017-12-20] MEDS ORDERED: cefTRIAXone (Rocephin) 1 gm Inj ONE (10:46)
[2017-12-20] MEDS ORDERED: Propofol 10 mg/ml Inj (20 ML) ONE (10:46)
[2017-12-20] MEDS ORDERED: Midazolam 2 MG/2 ML VIAL ONE (10:47)
[2017-12-20] MEDS ORDERED: Lidocaine 2% Inj (20ml) ONE (10:47)
[2017-12-20] MEDS ORDERED: HYDROmorphone 0.5 mg/0.5 ml ISec IVP PRN (12:06)
[2017-12-20] MEDS ORDERED: Lactated Ringer's 1,000 ML IV SCH (12:15)
[2017-12-20 12:47] VITALS: RESP 18
--- NOTE | 2017-12-20 12:48 | RAD ---
PROCEDURE: Retrograde pyelogram HISTORY: Bilateral retrograde pyelogram COMPARISON: TECHNIQUE: Fluoroscopy was provided in the operating room. 50.8 seconds of fluoro time. Cumulative dose 20.37 mGy. Sixteen images submitted FINDINGS: The left ureter is unremarkable. 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 There are no filling defects. There is dilatation of the right ureter and mild dilatation of the right renal pelvis. There is passage of a wire and ureteroscopy on the right IMPRESSION: As above
[2017-12-20 12:58] VITALS: TEMP 97.5; O2SAT 97
[2017-12-20 14:12] VITALS: BP 132/70; PULSE 68
--- NOTE | 2017-12-20 15:07 | OP ---
PROCEDURE DATE: 12/20/2017 PREOPERATIVE DIAGNOSIS: Ureteral tumor. POSTOPERATIVE DIAGNOSIS: Ureteral tumor. PROCEDURES: Cystoscopy, bilateral retrograde pyelograms, ureteroscopy of transplanted ureter, ureteroscopy of [place] ureter, excision and fulguration of ureteral tumor. ATTENDING SURGEON: Dr. Riki Quigley. ANESTHESIA: General. SPECIMENS: Ureteral tumor sent to pathology. DRAINS: None. COMPLICATIONS: None. OPERATIVE FINDINGS: After informed consent was obtained, the patient was taken to the Operating Room, placed on operating table. Anesthesia was administered. The patient was placed in dorsolithotomy position and prepped and draped in usual sterile fashion. The patient received IV antibiotics prior to start of the procedure. A 22-Surinamese cystoscope was passed into the patient's bladder and a full survey inspection was performed. There were no stones or foreign bodies noted. The left ureteral orifice was visualized and appeared within normal limits. The right ureteral orifice was visualized. There appeared to be some tumor just inside the ureter. There was an opening noted on the right superior posterior wall, which appeared to be the transplanted ureteral orifice. The patient had a history of a prior distal ureterectomy with a ureteral reimplant. At this point, a cone-tip catheter was obtained. It was passed through the cystoscope and guided into the left ureteral orifice. A retrograde pyelogram was then performed by instilling contrast through the left cone-tip catheter into the left ureter during real-time fluoroscopy. The left ureter appeared within normal limits. There is no evidence of filling defect noted. The upper collecting system appeared also within normal limits with no filling defect noted. The system was noted to drain promptly with no evidence of obstruction. At this point, the cone-tip catheter was guided into the [place] right orifice. Contrast was filled into the opening. There was a small part of ureter noted. Most of the contrast was noted to backflow into the bladder. At this point, the catheter was advanced into the opening which appeared to be transplanted orifice. Contrast was then instilled into this opening, which did reveal the remaining portion of the ureter and contrast was then instilled into the right kidney. There was no evidence of filling defect noted. There was no hydronephrosis or evidence of obstruction. At this point, the cone-tip catheter was withdrawn. An open-ended ureteral catheter was then passed and a sensor wire was obtained and passed through the open-ended catheter. It was advanced up the ureter and coiled in the upper collecting system. At this point, the bladder was drained and an 8-Surinamese semi-rigid ureteroscope was passed into the bladder and guided into the transplanted ureteral orifice. The ureteroscope was easily advanced up the ureter under direct vision and into the kidney. The kidney was inspected. There was no evidence of any tumor or abnormality noted in the renal pelvis or upper collecting system, could visualize into the upper and mid calyces. There was no obvious tumor noted. At this point, the ureteroscope was withdrawn under direct vision. Again, the ureter was inspected. There were no ureteral tumors or other abnormalities noted. At this point, the ureteroscope was withdrawn, the cystoscope was repassed and a cold cup biopsy forceps was passed into the [place] right ureteral orifice. The pieces of the tumor were then grasped and withdrawn and sent to pathology as specimen. A Bovie electrode was then used to cauterize inside the orifice fulgurating the remaining tumor. After the fulguration was completed, the bladder was drained, cystoscope was removed. The ureteroscope was then repassed. It was able to be passed into the [place] ureter and inspection was made. There was no remaining untreated tumor or tissue. There was a tiny area, which had not been fulgurated and a Bovie electrode was passed through the ureteroscope and this area also was cauterized in order to completely ablate any remaining mucosa in the ureteral tunnel. There was complete hemostasis from the excision and fulguration sites. At this point, the procedure was completed, the ureteroscope was removed. The cystoscope was repassed and the bladder was then drained. There was no active bleeding. There was clear efflux noted from the transplanted orifice and from the [place] left orifice and at this point, the procedure was complete, the bladder was drained. The cystoscope was removed. The patient tolerated the procedure well. She was returned to the supine position and taken to the Recovery Room, awake in stable condition. Riki Quigley MD
== END 2017-12-20 14:10 | disposition home or self-care (01) ==
LOC: SDS 07:36
PROVIDERS: ATTEND Urology
DX: C66.1 Malignant neoplasm of right ureter (principal); Z94.89 Other transplanted organ and tissue status; I10 Essential (primary) hypertension; E11.9 Type 2 diabetes mellitus without complications
CPT/HCPCS: 52354; 74420; 88305; C1758; J0696; J1170; J2250; J2405; J2704; J3010; J7120 ×2; Q9966

== ENCOUNTER 2018-07-14 07:56 | Outpatient (CLI) | payer MEDICARE, BC | END 2018-07-14 07:57 | disposition home or self-care (01) | LOC: PAT 07:56 | DX: C66.1 Malignant neoplasm of right ureter (principal); C66.9 Malignant neoplasm of unspecified ureter ==

== ENCOUNTER 2018-07-19 07:48 | Outpatient (CLI) | payer MEDICARE, BC | END 2018-07-19 07:49 | disposition home or self-care (01) | LOC: RAD 07:48 | DX: C66.1 Malignant neoplasm of right ureter (principal); R31.29 Other microscopic hematuria ==

== ENCOUNTER 2018-07-25 07:46 | Day surgery (SDC) | payer MEDICARE, BC ==
[2018-07-25 08:29] LABS: CALCIUM 9.8 mg/dL (8.4-10.5)
[2018-07-25] MEDS ORDERED: Propofol 10 mg/ml Inj (20 ML) ONE (10:15)
[2018-07-25] MEDS ORDERED: Iohexol 240 (50 ml) ONE (10:19)
[2018-07-25] MEDS ORDERED: cefTRIAXone (Rocephin) 1 gm Inj ONE (10:19)
[2018-07-25] MEDS ORDERED: Sevoflurane - Inhalation Anesthetic Liq (250 ml) ONE (10:48)
[2018-07-25] MEDS ORDERED: ePHEDrine 50 mg/ml Inj ONE (11:34)
[2018-07-25] MEDS ORDERED: Lactated Ringer's 1,000 ML IV SCH (11:45)
[2018-07-25 13:21] VITALS: RESP 20; TEMP 97.6; O2SAT 96
[2018-07-25 13:27] VITALS: BMI 37.0
--- NOTE | 2018-07-25 13:46 | RAD ---
Date of service: 07/25/2018 PROCEDURE: Fluoroscopy up to 1 hr. HISTORY: R/O OBSTRUCTION COMPARISON: None TECHNIQUE: Standard protocol for this study/examination. FINDINGS: Total fluoroscopic time (continuous mode) utilized during the procedure 89.4 seconds. Total exam DLP: 63.19 (mGy). IMPRESSION: Less than 1 hr fluoroscopic assistance provided during performance of the procedure.
[2018-07-25 14:07] VITALS: BP 138/76; PULSE 70
--- NOTE | 2018-07-25 22:50 | OP ---
PROCEDURE DATE: 07/25/2018 PREOPERATIVE DIAGNOSIS: History of ureteral cancer. POSTOPERATIVE DIAGNOSES: History of ureteral cancer plus bladder cancer. PROCEDURES: Cystoscopy, excision and fulguration of bladder tumor, left retrograde pyelogram, right retrograde pyelogram, right ureteroscopy and biopsy of right ureteral orifice. ATTENDING SURGEON: Riki Quigley MD ANESTHESIA: General. SPECIMENS: Bladder tumor from left posterior wall sent to pathology and biopsies of right ureteral orifice sent to pathology. DRAINS: None. COMPLICATIONS: None. OPERATIVE FINDINGS: After informed consent was obtained, the patient was taken to the operating room and placed on the operating table. Anesthesia was administered. The patient was then placed in the dorsal lithotomy position and prepped and draped in usual sterile fashion. A 21-Burmese cystoscope was passed into the patient's bladder under direct vision and a full survey inspection was performed. There were no stones or foreign bodies noted. There was grade 1 trabeculation noted. On the left posterior wall, there was a papillary tumor and a second smaller area of raised erythema with some papillary growth. The areas were confluent. There were no other areas of tumor noted. The left ureteral orifice was visualized and appeared within normal limits. The right ureteral orifice had some ragged previously treated tissue inside the orifice. At this point, a cold cup forceps was passed out. The tumors noted on the left posterior wall were then excised completely using the cold cup forceps. After the tumors were excised, a Bugbee electrode was then passed and the tumor site was fulgurated along with areas of surrounding normal mucosa. The entire suspicious area was adequately treated. At this point, using the cold cup forceps, multiple biopsies were taken inside the [place] right ureteral orifice and biopsies were taken of the surrounding area of the orifice. These biopsies were sent separately as specimen. The Bugbee electrode again was used to cauterize the biopsy sites and inside the orifice was again treated using the Bugbee electrode. At this point, the Bugbee was removed and an open-ended ureteral catheter was passed. First, it was passed into the left ureteral orifice and a left retrograde pyelogram was performed. The left retrograde pyelogram appeared within normal limits. There was no evidence of filling defects or obstruction noted. At this point, the open-ended ureteral catheter was placed into the transplanted right ureteral orifice which was located in the superior portion of the right lateral wall. When inside the orifice, contrast was instilled for right retrograde pyelogram. There appeared to be some mild chronic dilatation of the right renal pelvis. There was again no overt filling defects noted in the collecting system or the ureter. A sensor wire was then obtained and it was passed through the open-ended ureteral catheter and advanced up the ureter under fluoroscopic guidance until it coiled in the upper collecting system. A second wire was then passed, a zip wire, and also was coiled in the collecting system. The bladder was drained and the cystoscope was removed. Flexible ureteroscope was then obtained and it was passed over the Glidewire; however, given the patient's anatomy, the scope was coiling in the bladder and was unable to be passed over the wire into the transplanted right ureter. At this point, the flexible ureteroscope was removed and a 7.5 Burmese semirigid ureteroscope was obtained. Using a semirigid ureteroscope, I was able to cannulate the transplant orifice and advance the scope without any difficulty up the ureter until the renal pelvis was reached. Exam of the ureter was within normal limits. There were no papillary tumors or suspicious lesions noted. The renal pelvis was clear of any abnormalities. I could visualize the upper lateral calyces; however, the scope could not be advanced into them and at this point, the ureteroscope was withdrawn under direct vision. Again, there were no suspicious lesions in the collecting system or ureter noted. At this point, the ureteroscope was advanced into the [place] right ureteral orifice. I was able to look inside using the scope, there was fulgurated ragged tissue, but there was no obvious untreated tumor. At this point, the procedure was completed. The cystoscope was then re-passed. The guidewires were removed. The bladder was drained and the cystoscope was removed. The patient tolerated the procedure well. She was returned to the supine position and taken to the recovery room awake in stable condition. Riki Quigley MD
== END 2018-07-25 14:00 | disposition home or self-care (01) ==
LOC: SDS 07:46
PROVIDERS: ATTEND Urology
DX: C67.4 Malignant neoplasm of posterior wall of bladder (principal); C66.1 Malignant neoplasm of right ureter; Z94.89 Other transplanted organ and tissue status
CPT/HCPCS: 36415; 52234; 52354; 74420; 80048; 82948; 88305; J0696; J2001; J2405; J2704; J3010; J7120 ×2; Q9966

== ENCOUNTER 2018-10-10 08:18 | Outpatient (CLI) | payer MEDICARE, BC | END 2018-10-10 08:19 | disposition home or self-care (01) | LOC: LAB 08:18 ==